=== PATIENT | female | born 1940 | race Caucasian/White ===

== ENCOUNTER 2020-05-25 13:10 | Observation (INO) | payer MEDICARE, OTHER ==
[~2020-05-25 13:10] MED LIST: Iopamidol-370 76% 500 ML 1 ML ONE
[2020-05-25 13:53] LABS: #Basophils 0.1 thou/uL (0.0-0.2); #Eosinphils 0.1 thou/uL (0.0-0.7); #Lymphocytes 2.3 thou/uL (1.20-3.40); #Monocytes 0.7 thou/uL (0.11-0.59); %Basophils 0.4 % (0.0-1.0); %Eosinophils 0.4 % (0.0-10.0); %Lymphocytes 13.2 % (21.0-51.0); %Monocytes 4.2 % (0.0-10.0); %Neutrophils 81.7 % (42.0-75.0); Hemoglobin 14.4 g/dL (12.0-16.0); Mean Corpuscular HGB CONC 32.8 g/dL (32.0-36.0); Mean Corpuscular Volume 91.6 fL (78.0-98.0); Mean Platelet Volume 6.3 fL (7.4-10.4); Platelet Count 445 thou/uL (130-400); RBC Distribution Width 12.3 % (11.5-14.5); Red Blood Cell (RBC) Count 4.78 mill/uL (4.20-5.40); White Blood Cell (WBC) Count 17.1 thou/uL (4.8-10.8)
[2020-05-25 14:15] LABS: ALT (SGPT) 34 U/L (8-55); AST (SGOT) 41 U/L (5-34); Albumin 4.1 g/dL (3.4-4.8); Alkaline Phosphatase 82 U/L (40-110); Anion Gap 20 mmol/L (10-20); BUN (Urea Nitrogen) 27 mg/dL (9.8-20.1); Bilirubin, Total 0.6 mg/dL (0.2-1.2); Calc. Creatinine Clearance 0 mL/min (70-130); Calcium 9.2 mg/dL (7.8-10.44); Carbon Dioxide 23 mmol/L (23-31); Chloride 96 mmol/L (98-107); Estimated GFR-MDRD 55; Globulin 2.5 g/dL (2.4-3.5); Glucose 193 mg/dL (83-110); Potassium 3.8 mmol/L (3.5-5.1); Protein, Total 6.6 g/dL (6.0-8.3); Sodium 135 mmol/L (136-145)
--- NOTE | 2020-05-25 14:25 | RAD ---
PORTABLE CHEST 1 VIEW: Date: 05/25/2020 Time: 1349 hours HISTORY: Chest pain. COMPARISON: 12/05/2012. FINDINGS/IMPRESSION: The heart size is enlarged. The aorta is tortuous. No lobar consolidation, pneumothoraces, tavon pulm onary edema, or large effusions are seen. POS: AH
[2020-05-25] MEDS ORDERED: cefTRIAXone\\ROCEPHIN 1 GM VIAL ONE (14:32)
--- NOTE | 2020-05-25 14:48 | PDOC.HHP ---
Hospitalist HPI - History of Present Illness Chest pain, SOB History of Present Illness: PCP: Dr. Jefferson Majority of the H&P was taken from the patient's daughter, Kristyn, at bedside because the patient has pick's disease communicates with an iPad, which she does not currently have at this time. The patient is a 80-year-old female with a past medical history significant for pick's disease (communicates via iPad), hypertension, hyperlipidemia, osteoarthritis (on chronic steroids), and frequent falls that presents to the emergency department via EMS for chief complaint of chest pain or shortness of b reath. This afternoon, during a home health visit, the home health nurse found the patient, down on the floor in the bathroom. Apparently, she suffered a mechanical fall while attempting to bend over and warp picker a laundry basket. It is estimated that the patient could not of been down longer than 10 minutes because the patient's daughter had just left the house as the home health nurse was arriving to the home. The patient was alert, following commands, moving all extremities. The patient denied hitting her head, loss of consciousness, or vomiting. The home health nurse reports that the patient was complaining of chest pain and shortness of breath. Denies any recent cough, wheezing, illness or sick contacts. Denies any fever. Has no history of DVT/PE. No history of COPD/asthma. EMS was called. Upon arrival EMS noted an SPO2 of 89% on room air, which improved to 96% on 3 L nasal cannula. Patient was noted to be afebrile, normal blood pressure, mildly tachycardic with normal respirations. Patient was given an aspirin and IVF and brought to the emergency department for further evaluation. ED Course: VITAL SIGNS SunMay 25, 2020 13:24 YENI Harris Julia Pulse: 94, Resp: 18, O2 sat: 99, Time: 05/25/2020 13:24. VITAL SIGNS SunMay 25, 2020 13:34 YENI Harris Julia BP: 155/75, Temp: 99.0 (Oral), Pain: utr, Time: 05/25/2020 13:34. VITAL SIGNS SunMay 25, 2020 14:22 YENI Fall Lauren BP: 151/72, Pulse: 100, Resp: 18, O2 sat: 99 on (Room Air), Time: 05/25/2020 14:22. Medication Administration: aspirin oral 325 mg Oral Held 14:30 05/25/2020 - GIVEN BY EMS. Normal Saline 1 L IV Fluid Infusion Acknowledged 14:21 05/25/2020 azithromycin intravenous 500 mg IV Piggy Back Acknowledged 14:21 05/25/2020 cefTRIAXone injection 1 g IV Piggy Back Acknowledged 14:21 05/25/2020 Hospitalist ROS - Review of Systems ROS unobtainable: due to mental status (Has pick's disease, communicates with iPad, did not have device at this time. She is unable to hear or speak.) All other systems reviewed; all pertinent +/- noted in HPI/Subj - Medication Medications: Unable to reconcile home medications at bedside with family. 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 denies: cardiac disorder, cerebrovascular accident, diabetes mellitus - Social History Smoking Status: Never smoker Alcohol: reports: None (Quit, used to drink vodka multiple times per week.) Drugs: reports: none Living Situation: Alone (Daughter lives on the same property in a different structure) Occupation: Does not work Activity level: independent ambulation (Daughter reports that she should be utilizing a cane a roller walker and refuses.) - Exam General Appearance: NAD, awake alert. negative: ill appearing General - other findings: Nonverbal Eye: PERRL, anicteric sclera ENT: normocephalic atraumatic, dry oral mucosa Neck: supple, symmetric, no lymphadenopathy Neck - other findings: no cervical spine tenderness to palpation Heart: RRR, no gallops, no rubs, normal peripheral pulses, III/IV (Loudest at aortic listening point) Respiratory: no wheezes, no ronchi, normal chest expansion, no tachypnea, rales Gastrointestinal: soft, normal bowel sounds, no bruit, no guarding, no rigidity, distended (Mildly) Extremities: no cyanosis, no edema Neurological: no new deficit. negative: cranial nerve grossly intact (Baseline per family, Alert, deaf and mute, MAEW, communicating with her cell phone via text function.) Musculoskeletal: normal tone, normal strength Psychiatric: normal affect (Baseline per daughter at bedside nonverbal, deaf, communicates with iPad moving all extremities well) Hospitalist Results - Labs Result Diagrams: 05/25/20 13:36 05/25/20 13:36 Lab results: WBC 17.1 thou/uL (4.8-10.8) H 05/25/20 13:36 Hgb 14.4 g/dL (12.0-16.0) 05/25/20 13:36 Hct 43.8 % (36.0-47.0) 05/25/20 13:36 MCV 91.6 fL (78.0-98.0) 05/25/20 13:36 Plt Count 445 thou/uL (130-400) H 05/25/20 13:36 Neutrophils % 81.7 % (42.0-75.0) H 05/25/20 13:36 Sodium 135 mmol/L (136-145) L 05/25/20 13:36 Potassium 3.8 mmol/L (3.5-5.1) 05/25/20 13:36 Chloride 96 mmol/L (98-107) L 05/25/20 13:36 Carbon Dioxide 23 mmol/L (23-31) 05/25/20 13:36 BUN 27 mg/dL (9.8-20.1) H 05/25/20 13:36 Creatinine 0.97 mg/dL (0.6-1.1) 05/25/20 13:36 Glucose 193 mg/dL (83-110) H 05/25/20 13:36 Lactic Acid 2.5 mmol/L (0.5-2.2) H 05/25/20 13:36 Calcium 9.2 mg/dL (7.8-10.44) 05/25/20 13:36 Total Bilirubin 0.6 mg/dL (0.2-1.2) 05/25/20 13:36 AST 41 U/L (5-34) H 05/25/20 13:36 ALT 34 U/L (8-55) 05/25/20 13:36 Alkaline Phosphatase 82 U/L (40-110) 05/25/20 13:36 Troponin I 0.016 ng/mL (< 0.028) 05/25/20 13:36 B-Natriuretic Peptide 13.4 pg/mL (0-100) 05/25/20 13:36 Serum Total Protein 6.6 g/dL (6.0-8.3) 05/25/20 13:36 Albumin 4.1 g/dL (3.4-4.8) 05/25/20 13:36 - EKG Interpretation EK lead EKG interpreted by Emergency Department Physician at time of study, Rate of 100 sinus tachycardia low voltage QRS complex. Left axis deviation with left atrial enlargement. Normal ST segments normal T waves. - Radiology Interpretation Chest x-ray Status: report reviewed by me Additional Comment: FINDINGS/IMPRESSION: The heart size is enlarged. The aorta is tortuous. No lobar consolidation, pneumothoraces, tavon pulm onary edema, or large effusions are seen. CT scan - chest Status: report reviewed by me Additional Comment: IMPRESSION: No CT evidence of pulmonary embolism or thoracic aortic aneurysm/dissection. Hospitalist H&P A/P - Problem (1) Acute respiratory failure with hypoxia Code(s): J96.01 - ACUTE RESPIRATORY FAILURE WITH HYPOXIA Status: Acute (2) Sepsis Code(s): A41.9 - SEPSIS, UNSPECIFIED ORGANISM Status: Acute (3) Chest pain Code(s): R07.9 - CHEST PAIN, UNSPECIFIED Status: Acute (4) Cardiac murmur Code(s): R01.1 - CARDIAC MURMUR, UNSPECIFIED Status: Acute (5) Dehydration Code(s): E86.0 - DEHYDRATION Status: Acute (6) Elevated blood sugar level Code(s): R73.9 - HYPERGLYCEMIA, UNSPECIFIED Status: Acute (7) Hypertension Code(s): I10 - ESSENTIAL (PRIMARY) HYPERTENSION Status: Chronic (8) Hyperlipidemia Code(s): E78.5 - HYPERLIPIDEMIA, UNSPECIFIED Status: Chronic (9) Depression Code(s): F32.9 - MAJOR DEPRESSIVE DISORDER, SINGLE EPISODE, UNSPECIFIED Stat us: Chronic (10) Osteoarthritis Code(s): M19.90 - UNSPECIFIED OSTEOARTHRITIS, UNSPECIFIED SITE Status: Chronic (11) Overactive bladder Code(s): N32.81 - OVERACTIVE BLADDER Status: Chronic (12) Pick disease Code(s): G31.01 - PICK'S DISEASE; F02.80 - DEMENTIA IN OTH DISEASES CLASSD ELSWHR W/O BEHAVRL DISTURB Status: Chronic - Plan Plan: 80/F with PMH hypertension, hyperlipidemia and picks disease presents for chest pain and shortness of breath. Admit to telemetry floor, observation status. Expected length of stay less than 2 midnights. Presented afebrile, normotensive, tachycardic, normal RR, hypoxic. EKG normal sinus rhythm, no ST elevations. CXR appears left lower lobe infiltrate. CTA chest negative for pulmonary embolism. Troponin 0.016, BNP 13.4 WBC 17.1, LA 2.5 - taking chronic steroids. Blood/urine cultures pending. COVID test pending Started on a azithromycin, Rocephin, 1 L NS #Acute hypoxic respiratory failure Presented SPO2 89%, improved 96% on 3 L NC. Upon exam, 98% RA. Likely due to left lower lobe infiltrate on CXR. Continue to monitor SPO2. Supplemental oxygen as needed. #Sepsis Likely secondary to left lower lobe pneumonia. Continue azithromycin and Rocephin. Continue IV fluid resuscitation. Blood and urine cultures pending COVID test pending #Chest pain Resolved upon examination. Trend troponins, check TSH, FLP, mag level. Continue aspirin and start statin. Continue cardiac monitoring. #Cardiac murmur New according to patient's daughter. Loudest at aortic listening site, 11/06. Order echocardiogram. #Dehydration A: Tacky mucous membranes BUN 27, creatinine 0.97 Given 1 L NS in emergency department. Blood pressure stable. Continue IV maintenance fluids. Recheck level in a.m. #Elevated blood sugar level Presented with BG 193 No documented history of diabetes. Takes chronic steroids for osteoarthritis. We will check H A1c. #Hypertension Presented normotensive. When home medications reconciled, will restart when appropriate. #Hyperlipidemia Patient is on statin, unknown dose. Will start atorvastatin, high intensity dose. Check FLP. #Depression Denies SI/HI Unknown home medications at this time. With home medication reconciled by nursing, will restart. #Osteoarthritis Home medications unknown at this time. Takes prednisone daily. Once reconciled, will restart home medications. #Overactive bladder Takes oxybutynin, unknown dosage. Will restart home medication when reconciled by nursing. #Pick disease Non verbal, deaf. Communicates via ipad. Baseline per family at bedside upon admission. SCDs for DVT prophylaxis. No pharmacological DVT prophylaxis secondary to frequent falls. Pepcid for GI prophylaxis. Full code. Does need a medical decision-maker is her daughter, Kristyn at [phone]. Discussed case with Dr. Butcher.
[2020-05-25] MEDS ORDERED: Nitroglycerin 0.4 MG TAB (25 Tab Bottle) SL PRN (15:23)
--- NOTE | 2020-05-25 15:26 | CT ---
CT PULMONARY ANGIOGRAM WITH IV CONTRAST AND 3D POSTPROCESSING: Date: 05/25/2020 HISTORY: Chest pain and shortness of breath. FINDINGS: There is good contrast opacification of the pulmonary arterial vasculature without filling defects to suggest pulmonary embolism. The thoracic aorta is well opacified without aneurysm or dissection. No pleural or pericardial effusions are seen. No pneumothoraces, focal area of consolidation, lung nodules, or masses are seen. There are dependent changes in the lung bases. There are degenerative changes in the spine. Upper abdominal tomograms demonstrate changes of cholecy stectomy. IMPRESSION: No CT evidence of pulmonary embolism or thoracic aortic aneurysm/dissection. POS: AH
[2020-05-25] MEDS ORDERED: Calcium Carbonate 500 MG ChewTAB PO PRN (15:29)
[2020-05-25] MEDS ORDERED: Acetaminophen 325 MG TAB PO PRN (15:29)
[2020-05-25] MEDS ORDERED: Senokot S 8.6-50 MG TAB PO PRN (15:29)
[2020-05-25] MEDS ORDERED: Ondansetron ODT 4 MG TAB PO PRN (15:29)
[2020-05-25] MEDS ORDERED: Acetaminophen 650 MG Suppository PR PRN (15:29)
[2020-05-25] MEDS ORDERED: Ondansetron PF 4 MG/2 ML Vial IVP PRN (15:29)
[2020-05-25 16:04] LABS: Bilirubin Negative (Negative); Blood, Urine Negative (Negative); Clarity Turbid (Clear); Glucose, Urine (Dipstick) Normal (Negative); Ketone, Urine Negative (Negative); Leukocyte Negative Leu/uL (Negative); Nitrite Negative (Negative); Protein, Urine (Dipstick) Negative (Neg-Trace); Urobilinogen Normal mg/dL (Less than 2)
[2020-05-25 16:51] LABS: Hemoglobin A1c 9.4 % (4.0-6.0)
[2020-05-25 16:58] LABS: SARS-CoV-2 NAA Rapid Test Not Detected (NotDetected)
[2020-05-25 17:00] LABS: Lactic Acid 1.8 mmol/L (0.5-2.2)
[2020-05-25 17:07] LABS: Troponin I Less than 0.010 ng/mL (< 0.028)
[2020-05-25] MEDS ORDERED: Dextrose 5% in Water 1,000 ML IV PRN (17:08)
[2020-05-25] MEDS ORDERED: Dextrose 50% Abboject 50 ML SYRINGE SLOW IVP PRN (17:08)
[2020-05-25] MEDS ORDERED: HumaLOG 300 UNITS/3 ML VIAL SC PRN ×2 (17:08)
[2020-05-25] MEDS ORDERED: Azithromycin 500 MG VIAL ONE (17:08)
[2020-05-25 19:37] VITALS: BMI 30.9
[2020-05-25] MEDS ORDERED: Insulin Glargine 5 UNITS in Pre-Filled Syringe 1 EACH SC SCH (21:00)
[2020-05-25 21:02] LABS: Troponin I Less than 0.010 ng/mL (< 0.028)
[2020-05-25] MEDS ORDERED: Doxepin HCl 10 MG CAP PO SCH (22:45)
[2020-05-25] MEDS: Famotidine 20 MG TAB PO SCH (22:56)
[2020-05-25] MEDS: Atorvastatin Calcium 40 MG TAB PO SCH (22:56)
[2020-05-25] MEDS: Sodium Chloride 0.9% 1,000 ML IV SCH (22:56)
[2020-05-26 04:43] LABS: #Basophils 0.1 thou/uL (0.0-0.2); #Eosinphils 0.1 thou/uL (0.0-0.7); #Lymphocytes 2.4 thou/uL (1.20-3.40); #Monocytes 0.5 thou/uL (0.11-0.59); #Neutrophils 7.7 thou/uL (1.40-6.50); %Basophils 0.6 % (0.0-1.0); %Eosinophils 0.9 % (0.0-10.0); %Lymphocytes 21.9 % (21.0-51.0); %Monocytes 4.8 % (0.0-10.0); %Neutrophils 71.8 % (42.0-75.0); Hemoglobin 12.1 g/dL (12.0-16.0); Mean Corpuscular HGB CONC 33.2 g/dL (32.0-36.0); Mean Corpuscular Hemoglobin 30.4 pg (27.0-31.0); Mean Corpuscular Volume 91.6 fL (78.0-98.0); Mean Platelet Volume 6.1 fL (7.4-10.4); Platelet Count 367 thou/uL (130-400); RBC Distribution Width 12.1 % (11.5-14.5); Red Blood Cell (RBC) Count 3.98 mill/uL (4.20-5.40); White Blood Cell (WBC) Count 10.8 thou/uL (4.8-10.8)
[2020-05-26 05:08] LABS: Anion Gap 15 mmol/L (10-20); BUN (Urea Nitrogen) 15 mg/dL (9.8-20.1); Calc. Creatinine Clearance 100 mL/min (70-130); Carbon Dioxide 20 mmol/L (23-31); Cardiac Risk 4.2 (Less than 4.5); Chloride 104 mmol/L (98-107); Cholesterol 143 mg/dl (< 200 Desired); Estimated GFR-MDRD Greater than 90; Glucose 149 mg/dL (83-110); HDL Cholesterol 34 mg/dL (>60 Neg Risk); LDL Cholesterol, Calculated 64 mg/dL; Potassium 3.4 mmol/L (3.5-5.1); Sodium 136 mmol/L (136-145); Triglycerides 223 mg/dL (Less than 150)
[2020-05-26] MEDS: Sodium Chloride 0.9% 1,000 ML IV SCH ×3 (10:01→23:40)
[2020-05-26] MEDS: Famotidine 20 MG TAB PO SCH ×2 (10:03→21:14)
[2020-05-26] MEDS: predniSONE 5 MG TAB PO SCH ×3 (10:03→21:14)
[2020-05-26] MEDS: Aspirin 81 mg Enteric Coated Tablet PO SCH (10:03)
--- NOTE | 2020-05-26 13:07 | PDOC.HOSPP ---
- Subjective Encounter Date: 05/26/20 Encounter Time: 10:30 Subjective: Patient is going for a stress test. She is able to communicate with me through her tablet. Daughter at bedside. Planned that after the stress test report reviewed probably discharge her home which would very likely be tomorrow. - Objective Vital Signs & Weight: Vital Signs (12 hours) Temp Pulse Pulse Pulse Resp BP BP 05/26/20 11:21 98.3 F 86 20 05/26/20 09:08 101 H 90 130/78 142/65 H 05/26/20 07:37 97.9 F 99 22 H 05/26/20 04:28 97.5 F L 86 21 H BP Pulse Ox 05/26/20 11:21 129/69 96 05/26/20 09:08 05/26/20 07:37 139/83 96 05/26/20 04:28 148/68 H 97 Weight Weight 186 lb I&O: 05/25/20 05/26/20 05/27/20 06:59 06:59 06:59 Intake Total 893 Output Total 1750 Balance -857 Result Diagrams: 05/26/20 04:23 05/26/20 04:23 Additional Labs: Accuchecks 05/26/20 10:36 POC Glucose 137 H Hospitalist ROS - Medication Medications: Active Medications Generic Name Dose Route Start Last Admin Trade Name Bakari PRN Reason Stop Dose Admin Aspirin 81 mg 05/26/20 09:00 05/26/20 10:03 Aspirin 81 Mg Enteric Coated Tablet PO 81 mg DAILY ALICE Administration Atorvastatin Calcium 40 mg 05/25/20 21:00 05/25/20 22:56 Atorvastatin Calcium 40 Mg Tab PO 40 mg HS ALICE Administration Famotidine 20 mg 05/25/20 21:00 05/26/20 10:03 Famotidine 20 Mg Tab PO 20 mg BID ALICE Administration Sodium Chloride 1,000 mls @ 120 mls/hr 05/25/20 15:30 05/26/20 10:01 Normal Saline 0.9% IV 1,000 mls .[id number] ALICE Administration Insulin Glargine 5 units/ 0.05 mls @ 0 mls/hr 05/25/20 21:00 05/25/20 22:36 Miscellaneous Medication SC Not Given HS ALICE Prednisone 10 mg 05/26/20 09:05/26/20 10:03 Prednisone 5 Mg Tab PO 10 mg TID ALICE Administration - Exam General Appearance: NAD, awake alert Eye: PERRL ENT: normocephalic atraumatic Neck: supple Heart: RRR, normal peripheral pulses Respiratory: CTAB, normal chest expansion Gastrointestinal: soft, normal bowel sounds Neurological: normal sensation to touch, no focal deficits Psychiatric: A&O x 3 Hosp A/P - Plan Presented afebrile, normotensive, tachycardic, normal RR, hypoxic. EKG normal sinus rhythm, no ST elevations. CXR appears left lower lobe infiltrate. CTA chest negative for pulmonary embolism. Troponin 0.016, BNP 13.4 WBC 17.1, LA 2.5 - taking chronic steroids. Blood/urine cultures pending. COVID test pending Started on a azithromycin, Rocephin, 1 L NS #Acute hypoxic respiratory failure Community-acquired pneumonia Left lower lobe pneumonia Sepsis present on admission due to pneumonia Presented SPO2 89%, improved 96% on 3 L NC. Upon exam, 98% RA. Likely due to left lower lobe infiltrate on CXR. -continue azithromycin and Rocephin. Continue IV fluid resuscitation. Blood and urine cultures pending COVID test pending------------> negative #Cardiac murmur New according to patient's daughter. Loudest at aortic listening site, 11/06. Order echocardiogram.--------- pending Hyperglycemia #Elevated blood sugar level Presented with BG 193 No documented history of diabetes. Takes chronic steroids for osteoarthritis. We will check H A1c. 9.4 #Osteoarthritis Home medications unknown at this time. Takes prednisone daily. Once reconciled, will restart home medications. #Overactive bladder Takes oxybutynin, unknown dosage. Will restart home medication when reconciled by nursing. #Pick disease Non verbal, deaf. Communicates via ipad. Baseline per family at bedside upon admission. Hyperlipidemia with LDL of 64 TSH in the normal range. Troponin second set negative. Uncontrolled type 2 diabetes mellitus with A1c of 9.4 and not on any home medications. Her creatinine is in the normal range we will start her on a low-dose metformin and needs to be uptitrated by her primary care physician. I believe she probably would benefit with insulin and in the long run. However she needs since she is not on any diabetic medications plus ongoing chronic prednisone use will start first with metformin and And then she needs insulin introduction in the outpatient setting through her primary care physician. Daughter at bedside. Pending echo and stress test
[2020-05-26] MEDS: cefTRIAXone\\ROCEPHIN 2 GM in Sodium Chloride 0.9% 100 ML IVPB SCH (15:40)
--- NOTE | 2020-05-26 16:34 | NM ---
CARDIAC SPECT: 05/26/20 HISTORY: 80-year-old female with chest pain and hypertension. TECHNIQUE: A myocardial perfusion scan is performed using the single isotope one day protocol with technetium 99 m-Sestamibi. 9 millicuries was injected intravenously for rest followed by 29 millicuries for the str ess study. Pharmacologic test with Adenosine was monitored and interpreted by Dr. Rao. FINDINGS: Homogeneous tracer distribution seen in the myocardial segments on stress and rest images Without fix ed or reversible defects. Gated SPECT LVEF: 84%. Wall motion exam: Normal. IMPRESSION: Normal myocardial perfusion scan. POS: AH
[2020-05-26] MEDS: Azithromycin 500 MG in Sodium Chloride 0.9% 250 ML 250 ML IVPB SCH (17:52)
[2020-05-26] MEDS: metFORMIN 500 MG TAB PO SCH (17:52)
[2020-05-26] MEDS ORDERED: Doxepin HCl 10 MG CAP PO SCH ×2 (21:00→21:45)
[2020-05-26] MEDS: Atorvastatin Calcium 40 MG TAB PO SCH (21:14)
[2020-05-27] MEDS: Sodium Chloride 0.9% 1,000 ML IV SCH ×2 (08:21→20:09)
[2020-05-27] MEDS: Aspirin 81 mg Enteric Coated Tablet PO SCH (08:24)
[2020-05-27] MEDS: predniSONE 5 MG TAB PO SCH ×3 (08:24→21:49)
[2020-05-27] MEDS: metFORMIN 500 MG TAB PO SCH ×2 (08:24→16:52)
[2020-05-27] MEDS: Famotidine 20 MG TAB PO SCH ×2 (08:24→21:48)
[2020-05-27] MEDS ORDERED: Potassium Citrate 10 MEQ TAB PO SCH (10:00)
[2020-05-27] MEDS: cefTRIAXone\\ROCEPHIN 2 GM in Sodium Chloride 0.9% 100 ML IVPB SCH (15:16)
[2020-05-27] MEDS: Azithromycin 500 MG in Sodium Chloride 0.9% 250 ML 250 ML IVPB SCH (17:54)
[2020-05-27] MEDS ORDERED: Doxepin HCl 10 MG CAP PO SCH (21:00)
[2020-05-27] MEDS: Atorvastatin Calcium 40 MG TAB PO SCH (21:48)
[2020-05-28] MEDS: Sodium Chloride 0.9% 1,000 ML IV SCH ×2 (04:28→11:29)
[2020-05-28] MEDS: predniSONE 5 MG TAB PO SCH (08:34)
[2020-05-28] MEDS: metFORMIN 500 MG TAB PO SCH (08:34)
[2020-05-28] MEDS: Famotidine 20 MG TAB PO SCH (08:34)
[2020-05-28] MEDS: Aspirin 81 mg Enteric Coated Tablet PO SCH (08:34)
[2020-05-28 10:30] VITALS: BP 140/73; TEMP 98.9
--- NOTE | 2020-05-28 12:33 | PDOC.HOSPP ---
- Subjective Encounter Date: 05/27/20 Encounter Time: 11:20 Subjective: Seen today. Communicated with the patient in writing that stress test is completed and we are waiting for the echo to be completed as well prior to discharge. She expressed her understanding. There is a staff nearby in the room while I was communicating with the patient through writing in the paper. - Objective Vital Signs & Weight: Vital Signs (12 hours) Temp Pulse Resp BP BP Pulse Ox 05/28/20 10:27 98.9 F 92 16 140/73 97 05/28/20 07:55 98.7 F 85 18 101/62 97 05/28/20 03:12 98.1 F 77 12 123/58 L 95 05/28/20 01:43 96 Weight Weight 186 lb I&O: 05/27/20 05/28/20 05/29/20 06:59 06:59 06:59 Intake Total 2951 3914 Output Total 2600 500 Balance 351 3414 Result Diagrams: 05/26/20 04:23 05/26/20 04:23 Additional Labs: Accuchecks 05/28/20 05/28/20 05/27/20 10:43 06:13 20:21 POC Glucose 140 H 155 H 246 H 05/27/20 05/27/20 05/27/20 17:02 12:54 06:02 POC Glucose 230 H 227 H 167 H 05/26/20 16:55 POC Glucose 301 H - Exam General Appearance: NAD, awake alert Eye: PERRL ENT: normocephalic atraumatic Neck: supple Heart: RRR Respiratory: CTAB Gastrointestinal: soft, normal bowel sounds Neurological: no focal deficits Psychiatric: A&O x 3 Hosp A/P - Plan Presented afebrile, normotensive, tachycardic, normal RR, hypoxic. EKG normal sinus rhythm, no ST elevations. CXR appears left lower lobe infiltrate. CTA chest negative for pulmonary embolism. Troponin 0.016, BNP 13.4 WBC 17.1, LA 2.5 - taking chronic steroids. Blood/urine cultures pending. COVID test pending Started on a azithromycin, Rocephin, 1 L NS #Acute hypoxic respiratory failure Community-acquired pneumonia Left lower lobe pneumonia Sepsis present on admission due to pneumonia Presented SPO2 89%, improved 96% on 3 L NC. Upon exam, 98% RA. Likely due to left lower lobe infiltrate on CXR. -continue azithromycin and Rocephin. Continue IV fluid resuscitation. Blood and urine cultures pending COVID test pending------------> negative #Cardiac murmur New according to patient's daughter. Loudest at aortic listening site, 11/06. Order echocardiogram.--------- pending Hyperglycemia #Elevated blood sugar level Presented with BG 193 No documented history of diabetes. Takes chronic steroids for osteoarthritis. We will check H A1c. 9.4 #Osteoarthritis Home medications unknown at this time. Takes prednisone daily. Once reconciled, will restart home medications. #Overactive bladder Takes oxybutynin, unknown dosage. Will restart home medication when reconciled by nursing. #Pick disease Non verbal, deaf. Communicates via ipad. Baseline per family at bedside upon admission. Hyperlipidemia with LDL of 64 TSH in the normal range. Troponin second set negative. Uncontrolled type 2 diabetes mellitus with A1c of 9.4 and not on any home medic ations. Her creatinine is in the normal range we will start her on a low-dose metformin and needs to be uptitrated by her primary care physician. I believe she probably would benefit with insulin and in the long run. However she needs since she is not on any diabetic medications plus ongoing chronic prednisone use will start first with metformin and And then she needs insulin introduction in the outpatient setting through her primary care physician. Daughter at bedside. Pending echo and stress test Stress test report noted. Pending echo result. Note this progress note made on JESSI Mr. doing this progress note the plan was to discharge her on evening itself and do the discharge summary, wait for the echo report to be reviewed before prior to discharge. So with that intention I missed putting this progress note
--- NOTE | 2020-05-28 13:56 | DIS ---
DATE OF ADMISSION: 05/25/2020 DATE OF DISCHARGE: 05/28/2020 DISCHARGE DIAGNOSES: 1. Sepsis present on admission with community-acquired pneumonia. 2. Acute hypoxic respiratory failure. 3. Left lower lobe pneumonia. 4. Community-acquired pneumonia. 5. Hyperglycemia. A1c is 9.4. She is on chronic steroid for osteoarthritis and type 2 diabetes mellitus. 6. Overactive bladder, on oxybutynin. 7. Pick disease. 8. Hyperlipidemia with LDL of 64. DISCHARGE MEDICATIONS: 1. Lipitor 40 mg at bedtime. 2. Norvasc 10 mg daily. 3. Metformin, new medication during this hospitalization for type 2 diabetes mellitus, 500 mg twice a day. 4. Aspirin 81 mg daily. 5. Zithromax 500 mg daily. 6. Hydrochlorothiazide 12.5 mg daily. 7. Citalopram 20 mg daily. 8. Prednisone 10 mg three times a day. Her previous home regimen. 9. Several other p.r.n. medications. The patient is doing well this morning. She is quite anxious to go home. Otherwise, no acute events noted overnight. PHYSICAL EXAMINATION: VITAL SIGNS: Temperature 98.9, pulse 92, blood pressure 140/73, saturating 97% on room air. GENERAL: The patient is alert and oriented. She is ambulating well without any acute distress and she communicates through her iPad as she has a history of Pickwickian disease. She is aphasic. CARDIOVASCULAR: Regular rate and rhythm without murmurs, rubs, or gallops. LUNGS: Clear to auscultation bilaterally without wheezing, rales, or rhonchi. ABDOMEN: Soft, nontender, nondistended. Good bowel sounds. HOSPITAL COURSE: This is a 80-year-old female with a history of Pick disease, communicates via iPad, hypertension, hyperlipidemia, and osteoarthritis on chronic steroid from frequent falls, presented with the chest pain, productive cough, and fever. Diagnosed with sepsis on admission with community-acquired pneumonia, was started on ceftriaxone, Zithromax, and she clinically improved better to the level that she is saturating 97% with room air. Her cultures were negative. COVID is negative. UA is negative. She had initially elevated leukocytosis 17,000 and that has improved to 10,000 prior to discharge. Because of her elevated blood glucose being on steroid, A1c checked and it happened to be 9.4. She is not on any home hypoglycemic medications. I started metformin and she tolerated that well. She probably needs titration of that medicine in 2 to 3 weeks by her primary care physician. Because of her chest pain symptoms, we also ruled her out for acute coronary syndrome. She undergone a nuclear medicine stress test and that showed a normal myocardial perfusion imaging. She had an echo that showed an EF of 65% to 70% with normal left ventricular thickness and normal left ventricular size. The patient reached maximum benefit during this hospitalization. She is discharged in hemodynamically stable condition. DISCHARGE INSTRUCTIONS: Activity as tolerated. Healthy heart and diabetic diet. Follow up with PCP in 1 week. Instructions for PCP. The patient is started on metformin twice a day at 500 mg dose. Please look into it, and she probably would benefit with uptitration of this medication. As her A1c is around 9.3, and she is chronically on steroid use. TIME SPENT: Discharge time took over 35 minutes. Job ID: [id number] [id number]
== END 2020-05-28 12:18 | disposition home health service (06) ==
LOC: ERS 13:10 → INTOOBSV 18:30 → 2SW 18:30
PROVIDERS: ADMIT Internal Medicine; ATTEND Internal Medicine
DX: A41.9 Sepsis, unspecified organism (principal); J18.9 Pneumonia, unspecified organism; J96.01 Acute respiratory failure with hypoxia; G31.01 Pick's disease; F02.80 Dementia in other diseases classified elsewhere, unspecified severity, without behavioral disturbance, psychotic disturbance, mood disturbance, and anxiety; E11.65 Type 2 diabetes mellitus with hyperglycemia; I10 Essential (primary) hypertension; F32.9 Major depressive disorder, single episode, unspecified; N32.81 Overactive bladder; E78.5 Hyperlipidemia, unspecified; M19.90 Unspecified osteoarthritis, unspecified site; R29.6 Repeated falls; Z79.82 Long term (current) use of aspirin; Z79.84 Long term (current) use of oral hypoglycemic drugs; Z79.899 Other long term (current) drug therapy; Z20.828 Contact with and (suspected) exposure to other viral communicable diseases; W18.30XA Fall on same level, unspecified, initial encounter; Y92.002 Bathroom of unspecified non-institutional (private) residence as the place of occurrence of the external cause
CPT/HCPCS: 71045; 71275; 78452; 80048; 80061; 81003; 82962 ×3; 83036; 83605; 83735; 83880; 84484 ×2; 85025; 87040; 87086; 93005; 93017; 93306; 94760 ×2; 96361; 96365; 96367; 97116; 97139 ×3; 99285; A9500; U0002; 36415; 36416; 80053; 84443; 96366; 96376; G0378; J0153; J0456; J0696; J1815; J3490; J7050; J7512; Q9967